=== PATIENT | male | born 1960 | race Caucasian/White ===

== ENCOUNTER 2020-11-29 11:28 | Emergency (ER) | payer SELFPAY ==
[~2020-11-29] VITALS: Ht 180 cm; Wt 120.0 kg
[2020-11-29] MEDS ORDERED: KETOROLAC 30 MG/ML VIAL IVP STA (11:47)
[2020-11-29] MEDS ORDERED: NS IV 1000 ML 1,000 ML IV STA (11:47)
--- NOTE | 2020-11-29 12:00 | ED GI ---
General Chief Complaint: Abdominal/GI Problems Stated Complaint: LRQ PAIN; FEVER; NAUSEA Nursing Triage Note: PT REPORTS HE STARTED HAVING CRAMPS LATE SUNDAY NIGHT INTO Sunday. HE FELT FLUSH AND "FEVERISH" BUT DID NOT TAKE HIS TEMP. BECAME HOT AND SWEATY OFF AND ON WITH THE CRAMPING. Sunday HE STARTED HAVING RLQ PAIN. 02/19 this am. REBOUND TENDERNESS IN RLQ WITH REFERRED PAIN IN RLQ WHEN LLQ IS PALPATED. Sepsis Screen: No Definite Risk Source of Information: Patient History of Present Illness Date Seen by Provider: Nov 29, 2020 Time Seen by Provider: 11:30 Initial Comments 60-year-old male presenting with complaints of abdominal pain. He states that Sunday night into Sunday he felt like he was having some cramping and was going to have diarrhea. He tried taking Pepto-Bismol but did not feel that made any difference. Sunday he was feeling hot and flushed. He reports sweating with abdominal cramping and felt like he was given throw up. His left- sided abdominal cramping and pain has now moved to the right lower quadrant. He also reports he's had no appetite over the weekend but has not had anything to eat and hardly anything to drink. He denies any diarrhea. He did have a normal bowel movement Sunday night. The bowel movement did not make any difference on his pain. His pain is worse with palpation and movement. He denies any abdominal surgeries in the past. He has no pain or burning with urination but has decreased urine output. Allergies and Home Medications Allergies Coded Allergies: codeine (Verified Allergy, Unknown, Nausea, 11/29/20) "makes me sick" nausea and vomiting Patient Home Medication List Home Medication List Reviewed: Yes Review of Systems Review of Systems Constitutional: chills, fever (subjective) EENTM: No Symptoms Reported Respiratory: No Symptoms Reported Cardiovascular: No Symptoms Reported Gastrointestinal: See HPI Genitourinary: See HPI Musculoskeletal: no symptoms reported Skin: no symptoms reported Psychiatric/Neurological: No Symptoms Reported Past Dothkuu-Umnmua-Dsuczh Hx Past Med/Social Hx: Reviewed Nursing Past Med/Soc Hx Patient Social History Alcohol Use: Denies Use Type Used: Smokeless Tobacco 2nd Hand Smoke Exposure: No Recent Infectious Disease Expo: No Recent Hopitalizations: No Seasonal Allergies Seasonal Allergies: No Past Medical History Surgeries: Yes Tonsillectomy Respiratory: No Cardiac: No Neurological: No Genitourinary: No Gastrointestinal: No Musculoskeletal: No Endocrine: No HEENT: No Cancer: No Psychosocial: No Integumentary: No Blood Disorders: No Physical Exam Vital Signs Vital Signs - First Documented 11/29/20 11:45 Temp 36.8 Pulse 114 Resp 16 B/P (MAP) 140/95 (110) Pulse Ox 98 O2 Delivery Room Air Capillary Refill : Less Than 3 Seconds Height/Weight/BMI Height: '" Weight: lbs. oz. 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, alert, oriented x 3 Skin: normal color, warm/dry Images 1 - diffuse abdominal pain but has guarding with rebound in RLQ at McBurney's point Progress/Results/Core Measures Results/Orders Lab Results Laboratory Tests Test 11/29/20 11:35 11/29/20 11:55 Range/Units Urine Color YELLOW Urine Clarity CLEAR Urine pH 6.0 5-9 Urine Specific Huffman >=1.030 1.016-1.022 Urine Protein 2+ H NEGATIVE Urine Glucose (UA) NEGATIVE NEGATIVE Urine Ketones NEGATIVE NEGATIVE Urine Nitrite NEGATIVE NEGATIVE Urine Bilirubin 1+ H NEGATIVE Urine Urobilinogen 0.2 < = 1.0 MG/DL Urine Leukocyte Esterase NEGATIVE NEGATIVE Urine RBC (Auto) 1+ H NEGATIVE Urine RBC RARE /HPF Urine WBC 0-2 /HPF Urine Squamous Epithelial Cells 0-2 /HPF Urine Crystals NONE /LPF Urine Bacteria MODERATE H /HPF Urine Casts PRESENT /LPF Urine Hyaline Casts 0-2 H /LPF Urine Mucus MODERATE H /LPF Urine Culture Indicated NO White Blood Count 11.5 H 4.3-11.0 10^3/uL Red Blood Count 5.73 4.35-5.85 10^6/uL Hemoglobin 17.5 13.3-17.7 G/DL Hematocrit 51 40-54 % Mean Corpuscular Volume 89 80-99 FL Mean Corpuscular Hemoglobin 31 25-34 PG Mean Corpuscular Hemoglobin Concent 34 32-36 G/DL Red Cell Distribution Width 13.5 10.0-14.5 % Platelet Count 223 130-400 10^3/uL Mean Platelet Volume 10.6 H 7.4-10.4 FL Immature Granulocyte % (Auto) 0 % Neutrophils (%) (Auto) 74 42-75 % Lymphocytes (%) (Auto) 16 12-44 % Monocytes (%) (Auto) 9 0-12 % Eosinophils (%) (Auto) 1 0-10 % Basophils (%) (Auto) 0 0-10 % Neutrophils # (Auto) 8.5 H 1.8-7.8 X 10^3 Lymphocytes # (Auto) 1.8 1.0-4.0 X 10^3 Monocytes # (Auto) 1.0 0.0-1.0 X 10^3 Eosinophils # (Auto) 0.1 0.0-0.3 10^3/uL Basophils # (Auto) 0.0 0.0-0.1 10^3/uL Immature Granulocyte # (Auto) 0.0 0.0-0.1 10^3/uL Sodium Level 137 135-145 MMOL/L Potassium Level 3.2 L 3.6-5.0 MMOL/L Chloride Level 98 98-107 MMOL/L Carbon Dioxide Level 25 21-32 MMOL/L Anion Gap 14 5-14 MMOL/L Blood Urea Nitrogen 17 7-18 MG/DL Creatinine 1.42 H 0.60-1.30 MG/DL Estimat Glomerular Filtration Rate 51 BUN/Creatinine Ratio 12 Glucose Level 117 H 70-105 MG/DL Calcium Level 9.2 8.5-10.1 MG/DL Corrected Calcium 8.8 8.5-10.1 MG/DL Total Bilirubin 0.9 0.1-1.0 MG/DL Aspartate Amino Transf (AST/SGOT) 15 5-34 U/L Alanine Aminotransferase (ALT/SGPT) 25 0-55 U/L Alkaline Phosphatase 88 40-136 U/L Total Protein 8.0 6.4-8.2 GM/DL Albumin 4.5 3.2-4.5 GM/DL Lipase 49 8-78 U/L My Orders Orders - NANCY AVENDANO MD Ua Culture If Indicated (11/29/20 11:34) Comprehensive Metabolic Panel (11/29/20 11:46) Lipase (11/29/20 11:46) Ed Iv/Invasive Line Start (11/29/20 11:46) Cbc With Automated Diff (11/29/20 11:46) Ct Abdomen/Pelvis Wo (11/29/20 11:46) Ns Iv 1000 Ml (Sodium Chloride 0.9%) (11/29/20 11:47) Ketorolac Injection (Toradol Injection) (11/29/20 11:47) Vital Signs/I&O 11/29/20 11/29/20 11:45 13:03 Temp 36.8 36.8 Pulse 114 92 Resp 16 18 B/P (MAP) 140/95 (110) 156/72 Pulse Ox 98 97 O2 Delivery Room Air Room Air Blood Pressure Mean: 110 Progress Progress Note #1: Progress Note Check labs and CT scan to evaluate for appendicitis, renal colic with kidney stones, diverticulitis, colitis, abdominal mass with obstruction. Give IVF for hydration and to help with his tachycardia. Toradol for pain. Keep NPO until can see what his tests show. Progress Note #2: Time: 12:53 Progress Note labs show WBC of 11.5. Chemistry has mild elevation of Cr to 1.42. CT scan shows acute appendicitis with appendix 13 mm and surrounding stranding and fluid but no abscess. D/w Dr. Oneal and he requested pt come to same day surgery, stay NPO and would plan on trying to do his case as an outpatient. Diagnostic Imaging Diagonstic Imaging: CT Plain Films/CT/US/NM/MRI: abdomen, pelvis Comments [facility] [place], [place] NAME: KALPANA KENNEY [facility] REC#: [id number] PT STATUS: REG ER : 1960 PHYSICIAN: NANCY AVENDANO MD ADMIT DATE: 11/29/20/ER FS Draft Date of Exam:11/29/20 CT ABDOMEN/PELVIS WO EXAMINATION: CT Abdomen Pelvis without contrast. TECHNIQUE: Multiple contiguous axial images were obtained through the abdomen and pelvis without the use of intravenous contrast. All CT scans use one or more of the following dose optimizing techniques: automated exposure control, MA and/or KvP adjustment based on a patient size and exam type, or iterative reconstruction. HISTORY: Right flank pain. COMPARISON: None available. FINDINGS: Limited views of the lower thorax are unremarkable. The liver is normal without focal lesion. There is no biliary ductal dilation. Gallbladder is normal. Pancreas is normal. Spleen is normal. Adrenal glands are normal. The kidneys are normal. There is no hydronephrosis. Urinary bladder is normal. There is acute appendicitis with periappendiceal stranding. The appendix is 13 mm in diameter. No josafat intraperitoneal perforation is seen. No abscess. Small amount of fluid is present adjacent to the appendix. No free air. No abdominal or pelvic lymphadenopathy. Aorta is normal in caliber without aneurysm. There are no suspicious osseous lesions. IMPRESSION: 1. Acute appendicitis with a small amount of adjacent fluid and moderate stranding but no drainable abscess or josafat intraperitoneal perforation. Dictated on workstation # [id number] Dict: 11/29/20 1239 Trans: 11/29/20 1242 [facility] [id number] Interpreted by: ONEYDA RUTLEDGE MD Electronically signed by: Departure Communication (Admissions) Time/Spoke to Admitting Phy: 12:53 D/w Dr. Oneal and he will have pt come to same day surgery area at [facility]. He did not want antibiotics before pt came to [facility] area. Impression Primary Impression: Acute appendicitis with localized peritonitis Qualified Codes: K35.30 - Acute appendicitis with localized peritonitis, without perforation or gangrene Disposition: 30 STILL A PATIENT Condition: Stable Admissions Decision to Admit Reason: Admit from ER (General) Decision to Admit/Date: Nov 29, 2020 Time/Decision to Admit Time: 12:53 Departure-Patient Inst. Decision time for Depature: 13:02 Referrals: UMER ONEAL DAVID F MD (PCP/Family) Primary Care Physician Patient Instructions: Appendicitis in Adults, Appendectomy, Laparoscopic Surgery Add. Discharge Instructions: Go straight to Same Day Surgery in [place] at [place] [facility]. Dr. Oneal will take you to surgery from there. DO NOT EAT OR DRINK ANYTHING!!! All discharge instructions reviewed with patient and/or family. Voiced u nderstanding. NANCY AVENDANO MD Nov 29, 2020 12:00
[2020-11-29 12:35] LABS: BASOPHILS % (AUTO) 0 % (0-10); EOSINOPHILS % (AUTO) 1 % (0-10); HEMATOCRIT 51 % (40-54); HEMOGLOBIN 17.5 G/DL (13.3-17.7); LYMPHOCYTES % (AUTO) 16 % (12-44); MEAN CORPUSCULAR HEMOGLOBIN 31 PG (25-34); MEAN CORPUSCULAR HGB CONC 34 G/DL (32-36); MEAN CORPUSCULAR VOLUME 89 FL (80-99); MEAN PLATELET VOLUME 10.6 FL (7.4-10.4); MONOCYTES % (AUTO) 9 % (0-12); NEUTROPHILS % (AUTO) 74 % (42-75); PLATELET COUNT 223 10^3/uL (130-400); WHITE BLOOD COUNT 11.5 10^3/uL (4.3-11.0)
[2020-11-29 12:36] LABS: EOSINOPHILS # (AUTO) 0.1 10^3/uL (0.0-0.3); LYMPHOCYTES # (AUTO) 1.8 X 10^3 (1.0-4.0); NEUTROPHILS # (AUTO) 8.5 X 10^3 (1.8-7.8)
[2020-11-29 12:43] LABS: CLARITY,URINE CLEAR; COLOR,URINE YELLOW
--- NOTE | 2020-11-29 12:43 | Diagnostic Imaging Report ---
EXAMINATION: CT Abdomen Pelvis without contrast. TECHNIQUE: Multiple contiguous axial images were obtained through the abdomen and pelvis without the use of intravenous contrast. All CT scans use one or more of the following dose optimizing techniques: automated exposure control, MA and/or KvP adjustment based on a patient size and exam type, or iterative reconstruction. HISTORY: Right flank pain. COMPARISON: None available. FINDINGS: Limited views of the lower thorax are unremarkable. The liver is normal without focal lesion. There is no biliary ductal dilation. Gallbladder is normal. Pancreas is normal. Spleen is normal. Adrenal glands are normal. The kidneys are normal. There is no hydronephrosis. Urinary bladder is normal. There is acute appendicitis with periappendiceal stranding. The appendix is 13 mm in diameter. No josafat intraperitoneal perforation is seen. No abscess. Small amount of fluid is present adjacent to the appendix. No free air. No abdominal or pelvic lymphadenopathy. Aorta is normal in caliber without aneurysm. There are no suspicious osseous lesions. IMPRESSION: 1. Acute appendicitis with a small amount of adjacent fluid and moderate stranding but no drainable abscess or josafat intraperitoneal perforation. Dictated by: Dictated on workstation # [id number]
[2020-11-29 12:44] LABS: BACTERIA,URINE MODERATE /HPF; BILIRUBIN,URINE 1+ (NEGATIVE); GLUCOSE, URINE (UA) NEGATIVE (NEGATIVE); KETONES,URINE NEGATIVE (NEGATIVE); LEUKOCYTE ESTERASE ,URINE NEGATIVE (NEGATIVE); NITRITE,URINE NEGATIVE (NEGATIVE); PROTEIN,URINE 2+ (NEGATIVE); RBC,URINE RARE /HPF; SQUAMOUS EPITHELIAL CELL,UR 0-2 /HPF; WBC,URINE 0-2 /HPF
[2020-11-29 12:45] LABS: HYALINE CASTS, URINE 0-2 /LPF
[2020-11-29 12:47] LABS: POTASSIUM 3.2 MMOL/L (3.6-5.0)
[2020-11-29 12:48] LABS: ALBUMIN 4.5 GM/DL (3.2-4.5); BILIRUBIN,TOTAL 0.9 MG/DL (0.1-1.0); CALCIUM 9.2 MG/DL (8.5-10.1); CREATININE SERUM 1.42 MG/DL (0.60-1.30)
[2020-11-29 13:03] VITALS: BP 156/72
[2020-11-29] MEDS ORDERED: HYDR-4226 PO (15:22)
== END 2020-11-29 13:19 | disposition still patient (30) ==
LOC: ER FS 11:31
DX: K35.30 Acute appendicitis with localized peritonitis, without perforation or gangrene (principal); Z88.5 Allergy status to narcotic agent
CPT/HCPCS: 36415; 74176; 80053; 81000; 83690; 85025

== ENCOUNTER 2020-11-29 14:09 | Day surgery (SDC) | payer SELFPAY ==
[2020-11-29] VITALS (11 sets, daily range): BP systolic 113–180; BP diastolic 76–113
[~2020-11-29] VITALS: Ht 180 cm; Wt 118.3 kg
[2020-11-29] MEDS ORDERED: LIDOCAINE/EPI 1%-1:200,000 (XYLOCAINE) 30 ML VIAL ONE (14:10)
[2020-11-29] MEDS: LACTATED RINGERS 1,000 ML IV PRN ×2 (14:10→15:12)
[2020-11-29] MEDS ORDERED: SUCCINYLCHOLINE INJ 100 MG/5 ML SYR/VIAL ONE (14:17)
[2020-11-29] MEDS ORDERED: LIDOCAINE PF 2% 5 ML (XYLOCAINE) VIAL ONE (14:17)
[2020-11-29] MEDS ORDERED: GLYCOPYRROLATE 0.2 MG/ML (ROBINUL) 2 ML VIAL ONE (14:17)
[2020-11-29] MEDS ORDERED: NEOSTIGMINE 3 MG/3 ML VIAL ONE (14:17)
[2020-11-29] MEDS ORDERED: ROCURONIUM 10 MG/ML 5 ML SYRINGE IV ONE (14:17)
[2020-11-29] MEDS ORDERED: proPOfol 200 MG/20 ML (DIPRIVAN) VIAL IV ONE ×2 (14:17→15:10)
[2020-11-29] MEDS ORDERED: ONDANSETRON 4 MG/2 ML (SDV) Z0FRAN ONE (14:17)
[2020-11-29] MEDS ORDERED: SEVOFLURANE (ULTANE) 15 ML INHAL SOLN ONE (14:17)
[2020-11-29] MEDS ORDERED: fentaNYL INJECTION 100 MCG/2 ML AMP ONE (14:17)
[2020-11-29] MEDS ORDERED: MIDAZOLAM 2 MG/2 ML (VERSED) VIAL ONE (14:17)
[2020-11-29] MEDS ORDERED: ceFAZolin 2 GM IV Premixed 50 ML ONE (14:20)
--- NOTE | 2020-11-29 14:22 | Consultation - Surgery ---
NABIL FAITH,MED STUDENT 11/29/20 1422: History of Present Illness History of Present Illness Patient Consulted On(fer/time) 11/29/20 14:16 Date Seen by Provider: Nov 29, 2020 Time Seen by Provider: 02:11 History of Present Illness Pt is a 60 year old male with PMH of HTN who presented to the ED in [place] with Abdominal pain since 11/27. CT scan there showed acute appendicitis and CBC showed slightly elevated WBC count of 11.5, and he was sent to [facility] for appendectomy. He states that he started having constant 8/10 dull lower abdominal pain Sunday, 11/27, and described it as "feeling like I needed to have diarrhea". He tried taking pepto bismol but it did not help. On Tuesday 11/28 he began feeling feverish and started having off and on stabbing pains in his RLQ, and decided to go to the ER this morning. He states nothing has made his pain better and moving makes it worse. He has never experienced pain like this in the past. He denies chest pain, SOB, n/v but reports feeling feverish still. Allergies and Home Medications Allergies Coded Allergies: codeine (Verified Allergy, Unknown, Nausea, 11/29/20) "makes me sick" nausea and vomiting Past Wcgkphg-Nqdeiw-Wvwxkl Hx Patient Social History Smoking Status: Never a Smoker Type Used: Smokeless Tobacco 2nd Hand Smoke Exposure: No Recent Hopitalizations: No Alcohol Use?: Yes Seasonal Allergies Seasonal Allergies: No Surgeries History of Surgeries: Yes Surgeries: Tonsillectomy Respiratory History of Respiratory Disorde: No Cardiovascular History of Cardiac Disorders: Yes Cardiac Disorders: Hypertension Neurological History of Neurological Disord: No Genitourinary History of Genitourinary Disor: No Gastrointestinal History of Gastrointestinal Di: No Musculoskeletal History of Musculoskeletal Dis: No Endocrine History of Endocrine Disorders: No HEENT History of HEENT Disorders: No Cancer History of Cancer: No Psychosocial History of Psychiatric Problem: No Integumentary History of Skin or Integumenta: No Blood Transfusions History of Blood Disorders: No Family Medical History Significant Family History: Cancer (father-lung), Diabetes (uncle) Review of Systems-General Constitutional: No chills; diaphoresis; No dizziness; fever EENTM: No double vision, No vision loss, No nose congestion, No throat pain Respiratory: No cough, No dyspnea on exertion, No short of breath Cardiovascular: No chest pain, No edema, No palpitations Gastrointestinal: abdominal pain (RLQ); No constipation, No diarrhea, No nausea, No vomiting Genitourinary: No dysuria, No hematuria Musculoskeletal: joint pain; No muscle pain, No muscle weakness Skin: No change in color, No rash Psychiatric/Neurological: Denies Headache, Denies Numbness, Denies Tingling, Denies Weakness Physical Exam-General Problems Physical Exam Vital Signs Capillary Refill : General Appearance: WD/WN, mild distress (due to pain) Eyes: Bilateral Eye EOMI HEENT: No scleral icterus (R), No scleral icterus (L) Neck: supple; No lymphadenopathy (R), No lymphadenopathy (L) Respiratory: lungs clear, no respiratory distress, no accessory muscle use Cardiovascular: no edema, no murmur, tachycardia Peripheral Pulses: 2+ Radial Pulses (R), 2+ Radial Pulses (L) Gastrointestinal: normal bowel sounds, soft, guarding (voluntary), tenderness (RLQ), hernia (umbilical ) Rectal: deferred Back: no vertebral tenderness Extremities: no pedal edema, no calf tenderness, normal capillary refill Neurologic/Psychiatric: no motor/sensory deficits, alert, oriented x 3, other (nervous) Skin: normal color, warm/dry Lymphatic: no adenopathy (inguinal, cervical) Assessment/Plan Assessment/Plan Assessment/Plan Acute Appendicitis Hx of HTN Plan for Laparoscopic Appendectomy today UMER YANEZ DO 11/29/20 1435: History of Present Illness History of Present Illness Time Seen by Provider: 14:13 History of Present Illness Pt was seen in [facility] and sent down because of inflammation around appendix. Allergies and Home Medications Allergies Coded Allergies: codeine (Verified Allergy, Unknown, Nausea, 11/29/20) "makes me sick" nausea and vomiting Patient Home Medication List Home Medication List Reviewed: Yes Past Czxstap-Eefukv-Odrnvi Hx Patient Social History Smoking Status: Never a Smoker Alcohol Use?: Yes Surgeries History of Surgeries: Yes Surgeries: Tonsillectomy Family Medical History Significant Family History: Cancer (father-lung), Diabetes (uncle) Review of Systems-General Constitutional: No chills, No dizziness EENTM: No double vision, No vision loss Respiratory: No cough, No dyspnea on exertion, No short of breath Cardiovascular: No chest pain, No palpitations Gastrointestinal: abdominal pain (RLQ); No constipation, No diarrhea, No nausea, No vomiting Genitourinary: No dysuria, No hematuria Musculoskeletal: No muscle pain, No muscle weakness Psychiatric/Neurological: Denies Headache, Denies Numbness Physical Exam-General Problems Physical Exam General Appearance: mild distress (due to pain), obese Eyes: Bilateral Eye PERRL, Bilateral Eye EOMI HEENT: No scleral icterus (R), No scleral icterus (L); other (moist oral mucosa) Neck: non-tender, supple Respiratory: lungs clear, no respiratory distress, no accessory muscle use Cardiovascular: no edema, no murmur, tachycardia Gastrointestinal: soft, guarding (voluntary), tenderness (RLQ), hernia (umbilical ) Rectal: deferred Back: no vertebral tenderness Extremities: no pedal edema, no calf tenderness, normal capillary refill 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 TECHNIQUE: Multiple contiguous axial images were obtained through the abdomen and pelvis without the use of intravenous contrast. All CT scans use one or more of the following dose optimizing techniques: automated exposure control, MA and/or KvP adjustment based on a patient size and exam type, or iterative reconstruction. HISTORY: Right flank pain. COMPARISON: None available. FINDINGS: Limited views of the lower thorax are unremarkable. The liver is normal without focal lesion. There is no biliary ductal dilation. Gallbladder is normal. Pancreas is normal. Spleen is normal. Adrenal glands are normal. The kidneys are normal. There is no hydronephrosis. Urinary bladder is normal. There is acute appendicitis with periappendiceal stranding. The appendix is 13 mm in diameter. No josafat intraperitoneal perforation is seen. No abscess. Small amount of fluid is present adjacent to the appendix. No free air. No abdominal or pelvic lymphadenopathy. Aorta is normal in caliber without aneurysm. There are no suspicious osseous lesions. IMPRESSION: 1. Acute appendicitis with a small amount of adjacent fluid and moderate stranding but no drainable abscess or josafat intraperitoneal perforation. Dictated on workstation # [id number] Dict: 11/29/20 1239 Trans: 11/29/20 1242 [facility] [id number] Interpreted by: ONEYDA RUTLEDGE MD Assessment/Plan Assessment/Plan Assessment/Plan Acute Appendicitis HTN Pt has acute appendicitis confirmed by CT with elevated WBC and pain. Pt needs his appendix removed, will do this laparoscopically possible open. Pt will get preop IV ABX, IV fluids and pain control. We discussed the procedure in detail; risks and complications not limited to pain, bleeding, infection, scar or damage to bowel and need for further procedure. All questions answered to pt's satisfaction. Supervisory-Addendum Brief Verification & Attestation Participated in pt care: history, MDM, physical Personally performed: exam, history, MDM Care discussed with: Medical Student Procedures: n/a Verification and Attestation of Medical Student E/M Service A medical student performed and documented this service. I then reviewed and verified all information documented by the medical student and made modifications to such information, when appropriate. I personally performed a physical exam, medical decision making and then discussed any differences between the notes and made revisions as necessary to create one note. Umer Yanez , 11/29/20 , 14:36 NABIL FAITH,MED STUDENT Nov 29, 2020 14:22 UMER YANEZ DO Nov 29, 2020 14:35
[2020-11-29] MEDS ORDERED: ceFAZolin 2 GM/50 ML (PRE-MIXED) IV ONE (14:30)
[2020-11-29] MEDS ORDERED: KETOROLAC 30 MG/ML VIAL ONE (15:11)
[2020-11-29] MEDS ORDERED: PHENYLEPHRINE 100 MCG/ML 10 ML (ANESTHESIA) SYR ONE (15:16)
--- NOTE | 2020-11-29 15:21 | Progress Note-Post Operative ---
Post-Operative Progess Note Surgeon (s)/Cnc Applications Engineer (s) Surgeon UMER ONEAL DO Cnc Applications Engineer: PAIGE Mello Pre-Operative Diagnosis Acute Appy Post-Operative Diagnosis same Procedure & Operative Findings Date of Procedure 11/29/20 Procedure Performed/Findings PROCEDURE: Laparoscopic appendectomy. COMPLICATIONS: None. INDICATIONS: The patient is a 60 year old male who has been having right lower quadrant abdominal pain. Patient's exam consistent with appendicitis. I discussed risk and benefits of laparoscopic appendectomy and all indicated procedures with the possibility being a normal appendix. The patient understands the risks and benefits and wishes to proceed. Consent was signed on the chart. DESCRIPTION OF PROCEDURE: The patient was taken to the operating suite, prepped and draped in a sterile fashion. Timeout was performed. Local anesthetic was infiltrated just above the umbilicus and 11-blade scalpel was used to make a skin incision. Cautery was used to dissect down to the fascia and scored. Kochers were used to grasp and elevate it and the abdomen was then entered. A 0 Vicryl was placed in a [id number] fashion for closure at the end of the case. The balloon trocar was inserted into the abdomen and pneumoperitoneum was achieved. Under direct visualization of the laparoscope, a 5 mm trocar was placed in the suprapubic region and a 5 mm trocar was placed in the left lower quadrant. Appendix was located, necrotic appendix. The base of the appendix was dissected around. Once at the base an Endo-HERRERA 2.5 stapler was then fired across the base of the appendix. The mesoappendix was then divided. It was then placed in an Endobag and removed through the 12 mm trocar site. The abdomen was then irrigated and suctioned. No other pathology noted. The abdomen was then desufflated and the trocars were removed. The 0 Vicryl placed at the beginning of the case was then tied closing the 12 mm fascial defect. The skin was then closed using 4-0 Monocryl in a subcuticular fashion. The abdomen was then washed and dried and Skin Affix was placed over the incisions. The patient tolerated the procedure well without any complications and was taken to the recovery room in stable condition. Anesthesia Type GET Estimated Blood Loss Estimated blood loss (mL): scant Specimens/Packing Specimens Removed UMER Banda DO Nov 29, 2020 15:21
[2020-11-29] MEDS ORDERED: HYDR-4226 PO (15:22)
--- NOTE | 2020-11-29 15:23 | Discharge Inst-Surgical ---
Discharge Inst-Surgical Depart Medication/Instructions New, Converted or Re-Newed RX: RX Given to Pt/Family Patient Instructions Follow up Appt: Make appointment for 1 week. [phone] Instructions: No lifting greater than 20 pounds. No strenuous activity. May shower in 24 hours, no tub bath or soaking. Use incentive spirometer at home as directed. No Smoking Skin/Wound Care: May remove bandages in am. You need to leave the Dermabond on incision it will fall off on it's own. Symptoms to Report: Appetite Changes, Extremity Discoloration, Numbness/Tingling, Swelling Increased, Bleeding Excessive, Eyesight Changes, Pain Increased, Urine Color Change, Constipation(Persistent), Fever over 101 degree F, Pain/Pressure in chest, Urinating Difficulty, Cough Up/Vomit Blood, Heart Beat Irreg/Pounding, Pain/Pressure in jaw, Cramps in feet or legs, Lightheadedness, Pain/Pressure in shoulder, Diarrhea(Persistent), Memory Changes Suddenly, Questions/Concerns, Weight gain consecutive days, Dizziness/Fainting, Nausea/Vomiting, Shortness of Breath, Weight gain over 2 pounds If questions or concerns contact your physician Or seek help at emergency department. Activity Activity as Tolerated: Yes Activity Instructions: Avoid Stress to Incision Driving Instructions: No Driving/Refer to Dr. Melendrez Discharge Diet: No Restrictions Diet After 24 Hours: Clear Liquid if Nauseous If Any Problems/Questions/Issu: Contact Your Physician, Go to Emergency Room Skin/Wound Care Infection Signs and Symptoms: Increased Redness, Foul Odor of Wound, Increased Drainage, Skin Itchy or Has a Rash, Increased Swelling, Temperature Above 101 F Wound Care Comment: heating pad to shoulder or neck tonight for pain Bathing Instructions: Shower Stitches/Denzel/Dermabond Dis: Dermabond Ice Pack: Ice On and Off Site UMER ONEAL DO Nov 29, 2020 15:23
[2020-11-29] MEDS ORDERED: RT-ALBUTEROL SULF 2.5 MG/3 ML PRE-MIX VIAL ONE (15:36)
[2020-11-29] MEDS ORDERED: ONDANSETRON 4 MG/2 ML (SDV) Z0FRAN IVP PRN (15:45)
[2020-11-29] MEDS ORDERED: RT-ALBUTEROL SULF 2.5 MG/3 ML PRE-MIX VIAL INH ONE (15:45)
[2020-11-29] MEDS ORDERED: HYDROmorphone 2 MG/ML VIAL (DILAUDID) IV ONE (15:45)
--- NOTE | 2020-11-29 16:40 | Anesthesia-General Post-Op ---
General Patient Condition Mental Status/LOC: Same as Preop Cardiovascular: Satisfactory Nausea/Vomiting: Absent Respiratory: Satisfactory Pain: Controlled Complications: Absent Post Op Complications Complications None Follow Up Care/Instructions Patient Instructions None needed. Anesthesia/Patient Condition Patient Condition Patient is doing well, no complaints, stable vital signs, no apparent adverse anesthesia problems. No complications reported per nursing. D/C home per [facility] Criteria: Yes SVETA SERRANO CRNA Nov 29, 2020 16:40
== END 2020-11-29 17:50 | disposition home or self-care (01) ==
LOC: SDC 14:09
PROVIDERS: ATTEND Surgery
DX: K35.80 Unspecified acute appendicitis (principal); I10 Essential (primary) hypertension; Z79.899 Other long term (current) drug therapy; Z88.5 Allergy status to narcotic agent
CPT/HCPCS: 87081; 88304

== ENCOUNTER → 2021-06-09 | Outpatient (CLI) | payer SELFPAY ==
[~2021-06-09] MED LIST: HYDR-4226 PO
--- NOTE | 2021-06-09 13:06 | Diagnostic Imaging Report ---
Indication: Hypertension and elevated cholesterol. CT cardiac calcium scoring study performed with noncontrast images of the cardiac silhouette followed by calculation of calcium score. Visualized portions of mediastinum show no adenopathy. There is no aortic aneurysm. Visualized portions of the lung high showed calcified granuloma in the left upper lobe. The entirety of the lung high are not imaged. No significant coronary calcifications are visualized. Calcium score 0 in all territories. IMPRESSION: CT cardiac calcium score is 0, no significant calcifications. Dictated by: Dictated on workstation # [id number]
== END ==
LOC: RAD FS 11:54
PROVIDERS: ATTEND Family Medicine
DX: I10 Essential (primary) hypertension (principal); E78.00 Pure hypercholesterolemia, unspecified; R53.83 Other fatigue
CPT/HCPCS: 75571